=== PATIENT | male | born 1995 | race Caucasian/White ===

== ENCOUNTER 2024-07-14 22:59 | Emergency (ER) | payer OTHER, BC ==
[~2024-07-14] VITALS: Ht 180.3 cm; Wt 80.0 kg
[2024-07-15] MEDS ORDERED: TRAMADOL HCL50 MG PO (00:18)
[2024-07-15] MEDS ORDERED: TRAMADOL HCL 50 MG HOME.PACK PO ONE ×2 (00:23→00:30)
[2024-07-15 00:35] VITALS: BP 136/72
== END 2024-07-15 00:35 | disposition home or self-care (01) ==
LOC: ED 22:59
DX: S02.2XXA Fracture of nasal bones, initial encounter for closed fracture (principal); W01.198A Fall on same level from slipping, tripping and stumbling with subsequent striking against other object, initial encounter
CPT/HCPCS: 70486; 99283-25; A9270

== ENCOUNTER 2025-07-22 01:22 | Emergency (ER) | payer BC ==
[~2025-07-22] VITALS: Ht 180.3 cm; Wt 83.9 kg
[~2025-07-22 01:22] MED LIST: TRAMADOL HCL50 MG PO
[2025-07-22] MEDS ORDERED: SODIUM CHLORIDE 0.9% 1,000 ML IV ONE (01:30)
[2025-07-22] MEDS ORDERED: MORPHINE SULFATE 4 MG/ML VIAL IV ONE (01:30)
[2025-07-22 01:52] LABS: BASOPHILS 0.4 % (0.2-1.2); EOSINOPHILS 0.8 % (0.8-7.0); LYMPHOCYTES 59.8 % (21.8-53.1); MCH 30.3 PG (25.7-32.2); MCHC 35.2 g/dL (32.3-36.5); MCV 86.2 fL (79.0-92.2); MONOCYTES 6.7 % (5.3-12.2); NEUTROPHILS 32.2 % (34.0-67.9); RBC 4.58 M/uL (4.63-6.08)
[2025-07-22 02:15] LABS: ALT (SGPT) 50.0 U/L (14-59); AST (SGOT) 30.0 U/L (15-37); GLOMERULAR FILTRATION RATE,EST 93.0 mL/min (>60); PROTEIN, TOTAL 7.3 g/dL (6.4-8.2); UREA NITROGEN 19.0 mg/dL (7-18)
[2025-07-22 02:33] LABS: BLOOD/HGB, URINE NEGATIVE (Negative); KETONE, URINE NEGATIVE (Negative); LEUK ESTERASE, URINE NEGATIVE (negative); NITRITE, URINE NEGATIVE (negative)
[2025-07-22] MEDS ORDERED: ONDANSETRON ODT8 MG PO (02:43)
[2025-07-22] MEDS ORDERED: HYDROCODON-ACE1 EA10 PO (02:43)
[2025-07-22] MEDS ORDERED: ONDANSETRON 4 MG HOME.PACK SL ONE (02:45)
[2025-07-22] MEDS ORDERED: HYDROCODONE BIT/ACETAMINOPHEN 5/325 MG 1 TAB HOME.PACK PO ONE (02:45)
== END 2025-07-22 03:09 | disposition home or self-care (01) ==
LOC: ED 01:22
PROVIDERS: Family Medicine
DX: K85.90 Acute pancreatitis without necrosis or infection, unspecified (principal)
CPT/HCPCS: 36415; 71045; 80053; 81003; 83690; 85025; 96374; 99284-25; A9270; J2270; J7030